=== PATIENT | female | born 1990 ===

== ENCOUNTER 2017-05-20 09:06 | Observation (INO) | payer OTHER ==
[2017-05-20 09:16] VITALS: TEMP 98.1
[2017-05-20] MEDS ORDERED: Sodium Chloride 0.9% 1,000 ML IV STA (09:43)
[2017-05-20] MEDS ORDERED: Iohexol 350 MG/100 ML VIAL ONE (09:46)
[2017-05-20 10:09] LABS: BASO # 0.01 K/mm3 (0.0-2.0); BASO % 0.2 % (0.0-3.0); EOS % 0.5 % (1.5-5.0); GRAN # 1.88 (1.4-6.5); GRAN % 43.2 % (50.0-68.0); HEMATOCRIT 39.4 % (36.0-48.0); LYMPH % 46.9 % (22.0-35.0); MEAN CELL VOLUME 81.4 fl (80.0-105.0); MEAN CORPUSCULAR HEMOGLOBIN 26.2 pg (25.0-35.0); MEAN CORPUSCULAR HGB CONC 32.2 g/dl (31.0-37.0); MEAN PLATELET VOLUME 8.3 fl (7.0-11.0); MONO # 0.4 (0.1-0.6); MONO % 9.2 % (1.0-6.0); RED CELL DISTRIBUTION WIDTH 13.4 % (11.5-14.5); WHITE BLOOD COUNT 4.4 10^3/ul (4.5-11.0)
[2017-05-20 10:11] LABS: PH,URINE 6.5 (4.7-8.0); URINE APPEARANCE CLEAR (CLEAR); URINE BILIRUBIN NEGATIVE (NEGATIVE); URINE BLOOD NEGATIVE (NEGATIVE); URINE COLOR YELLOW (YELLOW); URINE GLUCOSE (UA) NEGATIVE (NEGATIVE); URINE KETONE TRACE mg/dL (NEGATIVE); URINE LEUKOCYTE ESTERASE NEGATIVE Leu/uL (NEGATIVE); URINE PROTEIN TRACE mg/dL (<30 mg/dL); URINE UROBILINOGEN 0.2 E.U./dL (<1 E.U./dL)
--- NOTE | 2017-05-20 10:13 | ED PDOC ---
Arrival/HPI - General Chief Complaint: Abdominal Pain Time Seen by Provider: 05/20/17 09:10 Historian: Patient - History of Present Illness Narrative History of Present Illness (Text): 05/20/17 10:10 26-year-old female presents today with lower abdominal pain that has been intermittent since January. Patient states the pain has been gradually worsening and she finally went to [place] the [place] and was given pain medications with improvement. Patient denies . Denies fevers or chills. Denies urinary symptoms. Denies vaginal bleeding or discharge. Patient states the pain is worse with movement and heavy lifting. Patient describes the pain as a pressure type pain in the lower abdomen. Patient states when she is going to lift an object she feels the pressure as if something is going to come out. Patient denies chest pain or shortness of breath. Denies back pain at present time. Denies dizziness or weakness. Time/Duration: > month (3months) Symptom Course: Intermittent Quality: Pressure Severity Level: 3 Past Medical History - Provider Review Nursing Documentation Reviewed: Yes - Travel History Have you recently traveled outside [place] w/in the past 3 mons?: No - Tetanus Immunization Tetanus Immunization: Unknown - Psychiatric Hx Substance Use: No Family/Social History - Physician Review Nursing Documentation Reviewed: Yes Family/Social History: Unknown Family HX Smoking Status: Never Smoked Hx Alcohol Use: No Hx Substance Use: No Allergies/Home Meds Allergies/Adverse Reactions: Allergies No Known Allergies Allergy (Verified 05/20/17 09:14) Review of Systems - Review of Systems Constitutional: absent: Fatigue, Fevers Respiratory: absent: SOB, Cough Cardiovascular: absent: Chest Pain, Palpitations Gastrointestinal: Abdominal Pain. absent: Constipation, Diarrhea, Nausea, Vomiting Genitourinary Female: absent: Dysuria, Frequency, Hematuria, Vaginal Bleeding, Vaginal Discharge Musculoskeletal: Back Pain. absent: Arthralgias, Neck Pain Skin: absent: Rash, Pruritis Neurological: absent: Headache, Dizziness Psychiatric: absent: Anxiety, Depression, Suicidal Ideation Physical Exam Vital Signs Reviewed: Yes Vital Signs Temp Pulse Resp BP Pulse Ox 05/20/17 11:24 64 16 118/71 100 05/20/17 09:15 98.1 F 68 17 123/87 100 05/20/17 09:14 98.8 F 63 16 123/87 100 Temperature: Afebrile Blood Pressure: Normal Pulse: Regular Respiratory Rate: Normal Appearance: Positive for: Well-Appearing, Non-Toxic, Comfortable Pain Distress: None Mental Status: Positive for: Alert and Oriented X 3 - Systems Exam Head: Present: Atraumatic Mouth: Present: Moist Mucous Membranes Respiratory/Chest: Present: Clear to Auscultation Cardiovascular: Present: Regular Rate and Rhythm Abdomen: Present: Tenderness (minimal suprapubic tenderness; ), Normal Bowel Sounds. No: Distention, Peritoneal Signs, Rebound, Guarding, McBurney's Point Tender Back: Present: Normal Inspection Upper Extremity: Present: Normal Inspection Lower Extremity: Present: Normal Inspection Neurological: Present: GCS=15 Skin: Present: Warm, Dry, Normal Color. No: Rashes Psychiatric: Present: Alert, Oriented x 3 Medical Decision Making ED Course and Treatment: 05/20/17 10:14 Patient is nontoxic well appearing with stable vital signs presenting with intermittent lower abdominal pain x 3 months. CBC wnl CMP wnl Lipase wnl Urinalysis no leukocytes Ultrasound:FINDINGS: UTERUS: Measures approximately 8.0 x 4.3 x 5.1 cm. . There is a small approximately 6 mm x 2.5 x 6.1 mm elliptical shaped hypoechoic focus within anterior aspect lower uterine segment near the cervix of uncertain etiology. Rule out the small fibroid. Followup 6 week interval could be performed to assess stability ENDOMETRIUM: Measures 3.5 mm in diameter. Unremarkable. CERVIX: Cervix measures approximately 3.1 cm. RIGHT OVARY: Measures approximately 4.1 x 1.65 x 1.69 cm. No solid mass. Normal flow. . Multiple small follicular cysts are present LEFT OVARY: Measures approximately 3.4 x 1.8 x 1.9 cm. No solid mass. Normal flow. . Multiple small follicular cysts are present, the largest approximately measuring 9 mm in greatest dimension. FREE FLUID: No significant free fluid noted. OTHER FINDINGS: None. IMPRESSION: Small approximately 6 mm x 2.5 x 6 mm elliptical shaped hypoechoic focus within anterior aspect lower uterine segment near the cervix of uncertain etiology ; rule out fibroid. Follow-up sonography in 6 weeks recommended to assess stability. Bilateral follicular cyst, the largest on the left side measuring 9 mm. CAT scan: FINDINGS: LOWER THORAX: Minor passive atelectasis left lung base. No effusion or basilar pneumothorax. . Heart appears mildly enlarged. Small hiatal hernia. LIVER: Exhibits normal size measuring approximately 16.6 cm in CC dimension. Mild periportal edema nonspecific. GALLBLADDER AND BILE DUCTS: Gallbladder is physiologically distended. No evidence of intraluminal gallbladder calculi so far as can be seen. PANCREAS: The visualized portions of the pancreas appear grossly unremarkable. SPLEEN: Spleen exhibits normal size. No evidence of splenic mass collection or calcification. ADRENALS: Unremarkable. KIDNEYS AND URETERS: Kidneys demonstrate symmetric nephrograms. No evidence of nephrolithiasis or hydronephrosis. Left-sided extrarenal pelvis. BLADDER: Urinary bladder is incompletely distended which may account for slight thick- walled appearance. Possibility of cystitis must be considered. REPRODUCTIVE: Uterus and adnexal structures appear unremarkable as visualized. APPENDIX: Normal-appearing probably partially imaged appendix best seen on coronal image numbers [id number]. No periappendiceal inflammatory changes. BOWEL: Evaluation of the bowel is somewhat limited due to the lack of oral contrast. Stomach is incompletely distended which presumably accounts for thick-walled appearance. Possibility of gastritis not excluded. No evidence of acute mechanical small bowel obstruction however it note made of several loops of small bowel that exhibit mild wall thickening nonspecific. Rule out enteritis. There is a moderate amount of stool seen within the rectum and possibly within a short segment of redundant proximal sigmoid colon suggesting mild constipation. PERITONEUM: No obvious free or loculated fluid collections. No gross air. LYMPH NODES: No significant adenopathy. VASCULATURE: Unremarkable. No aortic aneurysm. BONES: No fracture or destructive lesion. OTHER FINDINGS: None. IMPRESSION: Mild periportal edema nonspecific. Findings also suggest mild constipation as above. Several loops of the small bowel in the left mid abdomen exhibit mild wall thickening nonspecific. Rule out enteritis. No evidence of acute appendicitis. will send gc/chlamydia. Patient reassessment: pt non toxic well appearing; no distress. stable vitals. Discussed all results with patient in depth. advised f/u with GI and [facility]. Impression: Abdominal pain Motrin every 6 hours as needed for pain Follow up with primary care physician within the next 2 days Follow up with the GI doctor within the next 2 days. Follow up with the [facility]PER[employer] within the next 2 days. Return immediately if symptoms worsen persist or if new symptoms develop: High fevers, increasing pain, vomiting, diarrhea or any other concerning symptoms develop - Medication Orders Current Medication Orders: Discontinued Medications Sodium Chloride (Sodium Chloride 0.9%) 1,000 mls @ 999 mls/hr IV .Q1H1M STA Stop: 05/20/17 10:43 Last Admin: 05/20/17 10:01 Dose: 999 mls/hr Iohexol (Omnipaque 350 100 Ml) Confirm Administered Dose 350 mg .ROUTE .STK-MED ONE Stop: 05/20/17 09:47 ED OBSERVATION Discharge: Yes Date of observation admission: 05/20/17 Time of observation admission: 09:40 - Observation admission statement Patient is being placed in observation because:: abdominal pain - Goals of Observation Goals of observation are:: improvement in symptoms - Progress Note Progress Note: 05/20/17 11:34 pt non toxic well appearing; no distress. stable vitals. 05/20/17 13:35 pt non toxic well appearing; no distress. stable vitals. 05/20/17 13:40 will d/c to ship; unfit for duty; fit for travel Disposition/Present on Arrival - Present on Arrival Any Indicators Present on Arrival: No History of DVT/PE: No History of Uncontrolled Diabetes: No Urinary Catheter: No History of Decub. Ulcer: No History Surgical Site Infection Following: None - Disposition Have Diagnosis and Disposition been Completed?: Yes Diagnosis: Abdominal pain, Pelvic pain Disposition: HOME/ ROUTINE Disposition Time: 13:34 Patient Plan: Discharge Patient Problems: Current Active Problems Problem Status Onset Abdominal pain Acute Pelvic pain Acute Condition: GOOD
[2017-05-20 10:22] LABS: ALB/GLOB RATIO 1.3 (1.1-1.8); ALKALINE PHOSPHATASE 45 U/L (38-133); ALT/SGPT 23 U/L (7-56); AST/SGOT 26 U/L (15-39); BILIRUBIN,TOTAL 0.5 mg/dL (0.2-1.3); BLOOD UREA NITROGEN 13 mg/dL (7-21); CALCIUM 9.2 mg/dL (8.4-10.5); CARBON DIOXIDE 25 mmol/L (21-33); CHLORIDE 104 mmol/L (98-107); GFR AFRICAN-AMERICAN > 60; GLUCOSE,RANDOM 84 mg/dL (70-110); LIPASE 171 U/L (23-300); POTASSIUM 3.8 mmol/L (3.6-5.0); SODIUM 138 mmol/L (132-148); TOTAL PROTEIN 7.5 g/dL (5.8-8.3)
[2017-05-20 10:46] LABS: URINE BACTERIA FEW (NEG); URINE EPITHELIAL CELLS 0 - 2 /hpf (0-5); URINE RBC NEGATIVE /hpf (0-2); URINE WBC 0 - 2 /hpf (0-6)
--- NOTE | 2017-05-20 11:49 | CT ---
PROCEDURE: CT abdomen pelvis dated 05/20/2017 HISTORY: abd pain COMPARISON: None. TECHNIQUE: Contiguous axial images of the abdomen and pelvis performed of following intravenous injection of approximately 100 cc Omnipaque 350 contrast material. . . Coronal and Sagittal reformats generated. Radiation dose: Total exam DLP = 213.99 mGy-cm. This CT exam was performed using one or more of the following dose reduction techniques: Automated exposure control, adjustment of the mA and/or kV according to patient size, and/or use of iterative reconstruction technique. FINDINGS: LOWER THORAX: Minor passive atelectasis left lung base. No effusion or basilar pneumothorax. . Heart appears mildly enlarged. Small hiatal hernia. LIVER: Exhibits normal size measuring approximately 16.6 cm in CC dimension. Mild periportal edema nonspecific. GALLBLADDER AND BILE DUCTS: Gallbladder is physiologically distended. No evidence of intraluminal gallbladder calculi so far as can be seen. PANCREAS: The visualized portions of the pancreas appear grossly unremarkable. SPLEEN: Spleen exhibits normal size. No evidence of splenic mass collection or calcification. ADRENALS: Unremarkable. KIDNEYS AND URETERS: Kidneys demonstrate symmetric nephrograms. No evidence of nephrolithiasis or hydronephrosis. Left-sided extrarenal pelvis. BLADDER: Urinary bladder is incompletely distended which may account for slight thick-walled appearance. Possibility of cystitis must be considered. REPRODUCTIVE: Uterus and adnexal structures appear unremarkable as visualized. APPENDIX: Normal-appearing probably partially imaged appendix best seen on coronal image numbers [id number]. No periappendiceal inflammatory changes. BOWEL: Evaluation of the bowel is somewhat limited due to the lack of oral contrast. Stomach is incompletely distended which presumably accounts for thick-walled appearance. Possibility of gastritis not excluded. No evidence of acute mechanical small bowel obstruction however it note made of several loops of small bowel that exhibit mild wall thickening nonspecific. Rule out enteritis. There is a moderate amount of stool seen within the rectum and possibly within a short segment of redundant proximal sigmoid colon suggesting mild constipation. PERITONEUM: No obvious free or loculated fluid collections. No gross air. LYMPH NODES: No significant adenopathy. VASCULATURE: Unremarkable. No aortic aneurysm. BONES: No fracture or destructive lesion. OTHER FINDINGS: None. IMPRESSION: Mild periportal edema nonspecific. Findings also suggest mild constipation as above. Several loops of the small bowel in the left mid abdomen exhibit mild wall thickening nonspecific. Rule out enteritis. No evidence of acute appendicitis.
--- NOTE | 2017-05-20 11:57 | US ---
HISTORY: pelvic pain COMPARISON: None available. TECHNIQUE: Transabdominal/ transvaginal FINDINGS: UTERUS: Measures approximately 8.0 x 4.3 x 5.1 cm. . There is a small approximately 6 mm x 2.5 x 6.1 mm elliptical shaped hypoechoic focus within anterior aspect lower uterine segment near the cervix of uncertain etiology. Rule out the small fibroid. Followup 6 week interval could be performed to assess stability ENDOMETRIUM: Measures 3.5 mm in diameter. Unremarkable. CERVIX: Cervix measures approximately 3.1 cm. RIGHT OVARY: Measures approximately 4.1 x 1.65 x 1.69 cm. No solid mass. Normal flow. . Multiple small follicular cysts are present LEFT OVARY: Measures approximately 3.4 x 1.8 x 1.9 cm. No solid mass. Normal flow. . Multiple small follicular cysts are present, the largest approximately measuring 9 mm in greatest dimension. FREE FLUID: No significant free fluid noted. OTHER FINDINGS: None. IMPRESSION: Small approximately 6 mm x 2.5 x 6 mm elliptical shaped hypoechoic focus within anterior aspect lower uterine segment near the cervix of uncertain etiology ; rule out fibroid. Follow-up sonography in 6 weeks recommended to assess stability. Bilateral follicular cyst, the largest on the left side measuring 9 mm.
[2017-05-20 14:03] VITALS: BP 117/70; PULSE 63; RESP 18; O2SAT 98
== END 2017-05-20 14:31 | disposition home or self-care (01) ==
LOC: ED 09:06 → EROBSV 09:36
PROVIDERS: ADMIT Emergency Medicine; ATTEND Emergency Medicine
DX: R10.2 Pelvic and perineal pain (principal); R10.9 Unspecified abdominal pain
CPT/HCPCS: 74177; 76830; 80053; 81001; 83690; 85025; 87491; 87591; 96360; 99285; G0378; J7040; Q9967